=== PATIENT | female | born 1940 | race American Indian/Alaskan Native ===

== ENCOUNTER 2017-10-09 22:14 | Emergency (ER) | payer MEDICARE, BC, OTHER ==
[2017-10-09 23:48] VITALS: RESP 18; O2SAT 98
[2017-10-10 00:32] LABS: SQUAMOUS EPITHIAL 6 /hpf (0-5); URINE BILIRUBIN NEGATIVE (NEGATIVE); URINE BLOOD 3+ (NEGATIVE); URINE CLARITY Hazy (Clear); URINE COLOR Yellow (YELLOW); URINE GLUCOSE (UA) NORMAL (Normal); URINE LEUKOCYTE ESTERASE 3+ Leu/uL (Negative); URINE NITRATE NEGATIVE (NEGATIVE); URINE PROTEIN 2+ mg/dL (NEGATIVE); URINE UROBILINOGEN NORMAL mg/dL (0.2-1.0); WBC CLUMPS MANY /hpf
--- NOTE | 2017-10-10 01:07 | C.PDOC ---
History Of Present Illness Patient is a 77 y/o female who presents to the ED with a complaint of suprapubic discomfort, dysuria, and increased frequency. Patient denies fever, chills, nausea, or vomiting. Admits to tolerating PO. No other physical complaints at this time. Time Seen by Provider: 10/10/17 00:57 Chief Complaint (Nursing): Female Genitourinary History Per: Patient History/Exam Limitations: no limitations Current Symptoms Are (Timing): Still Present Severity: Moderate Pain Scale Rating Of: 4 Quality Of Discomfort: "Pain" Associated Symptoms: Urinary Symptoms (dysuria, increased frequency) Recent travel outside of the [place]: No Past Medical History Reviewed: Historical Data, Nursing Documentation, Vital Signs Vital Signs: Last Vital Signs Temp 99.7 F H 10/09/17 23:41 Pulse 88 10/09/17 23:41 Resp 18 10/09/17 23:41 BP 165/73 H 10/09/17 23:41 Pulse Ox 98 10/10/17 01:07 - Medical History PMH: Diabetes, HTN Surgical History: No Surg Hx - [facility] Procedures COLONOSCOPY (06/01/03) ESOPHAGOGASTRODUODENOSCOPY [EGD] W/CLOSED BIOPSY (06/01/03) Family History: States: No Known Family Hx - Social History Hx Tobacco Use: No Hx Alcohol Use: No Hx Substance Use: No - Immunization History Hx Tetanus Toxoid Vaccination: No Hx Influenza Vaccination: No Hx Pneumococcal Vaccination: No Review Of Systems Constitutional: Negative for: Fever, Chills Gastrointestinal: Positive for: Abdominal Pain (suprapubic discomfort). Negative for: Nausea, Vomiting Genitourinary: Positive for: Dysuria, Frequency Physical Exam - Physical Exam Appears: Non-toxic, No Acute Distress Skin: Warm, Dry Head: Normacephalic Oral Mucosa: Moist Chest: Symmetrical Cardiovascular: Rhythm Regular, No Murmur Respiratory: Normal Breath Sounds, No Rales, No Rhonchi, No Wheezing Gastrointestinal/Abdominal: Soft, Tenderness (suprapubic tenderness), No Guarding, No Rebound Neurological/Psych: Oriented x3, Normal Speech, Normal Cognition ED Course And Treatment O2 Sat by Pulse Oximetry: 98 Progress Note: Pyridium and macrobid administered. Disposition Counseled Patient/Family Regarding: Studies Performed, Diagnosis, Need For Followup, Rx Given - Disposition Referrals: [facility] [Outside] [facility] [Outside] Disposition: HOME/ ROUTINE Disposition Time: 01:04 Condition: FAIR Additional Instructions: Please return if symptoms recur Prescriptions: Nitrofurantoin Macrocrystals [Macrobid] 1 cap PO BID #14 cap Phenazopyridine [Pyridium] 200 mg PO TID #6 tab Instructions: Urinary Tract Infection in Women (DC) Forms: [facility] (Icelandic) - Clinical Impression Clinical Impression: UTI (urinary tract infection) - Scribe Statement The provider has reviewed the documentation as recorded by the Scribe Mariana Jean All medical record entries made by the Scribe were at my direction and personally dictated by me. I have reviewed the chart and agree that the record accurately reflects my personal performance of the history, physical exam, medical decision making, and the department course for this patient. I have also personally directed, reviewed, and agree with the discharge instructions and disposition.
[2017-10-10 01:31] VITALS: BP 174/82; PULSE 84; TEMP 99.3
== END 2017-10-10 01:32 | disposition home or self-care (01) ==
LOC: C.ER 22:14
DX: N39.0 Urinary tract infection, site not specified (principal); E11.9 Type 2 diabetes mellitus without complications; I10 Essential (primary) hypertension

== ENCOUNTER 2017-10-17 16:53 | Emergency (ER) | payer MEDICARE, BC, OTHER ==
[2017-10-17 17:10] VITALS: TEMP 97.9
--- NOTE | 2017-10-17 17:27 | C.PDOC ---
History Of Present Illness 77 years old female presents to ED with complaints of reoccurring pelvic pressure associated with dysuria that began yesterday. s/p treatment for UTI on Macrobid since 10/10. Patient states she has completed her antibiotics and symptoms initially improved, however, the symptoms reoccurred and are present now. She reports the current symptoms are similar to prior. Denies fever, nausea , or vomiting. CO RECUR PELVIC PRESSURE SINCE YEST. S/P TX FOR UTI ON MACROBID SINCE 10/10. PS COMPLETED ABX, INITIALLY IMPROVED BUT NOW W RECUR SX. CURRENT SX SIM TO PRIOR. NO NEW FEVER, NVD. +DYSURIA EXAM NONTOXIC ABD MILD SUPRAPUB TEND SOFT NO R/G REMAINDER NEG Chief Complaint (Nursing): Abdominal Pain History Per: Patient History/Exam Limitations: no limitations Onset/Duration Of Symptoms: Hrs Current Symptoms Are (Timing): Still Present Quality Of Discomfort: Pressure Associated Symptoms: Urinary Symptoms (dysuria ). denies: Fever, Chills, Nausea , Vomiting Alleviating Factors: None Recent travel outside of the [place]: No Abnormal Vaginal Bleeding: No Past Medical History Reviewed: Historical Data, Nursing Documentation, Vital Signs Vital Signs: Last Vital Signs Temp 97.9 F 10/17/17 17:06 Pulse 95 H 10/17/17 17:06 Resp 20 10/17/17 17:06 BP 169/66 H 10/17/17 17:06 Pulse Ox 99 10/17/17 17:42 - Medical History PMH: Diabetes, HTN - [facility] Procedures COLONOSCOPY (06/01/03) ESOPHAGOGASTRODUODENOSCOPY [EGD] W/CLOSED BIOPSY (06/01/03) Family History: States: No Known Family Hx - Social History Hx Tobacco Use: No Hx Alcohol Use: No Hx Substance Use: No - Immunization History Hx Tetanus Toxoid Vaccination: No Hx Influenza Vaccination: No Hx Pneumococcal Vaccination: No Review Of Systems Constitutional: Negative for: Fever, Chills Gastrointestinal: Negative for: Nausea, Vomiting Genitourinary: Positive for: Dysuria, Other (Pelvic pressure). Negative for: Frequency, Hematuria Neurological: Negative for: Weakness, Numbness Physical Exam - Physical Exam Appears: Well, Non-toxic, Other Skin: Normal Color, Warm, Dry Head: Atraumatic, Normacephalic Eye(s): bilateral: Normal Inspection Oral Mucosa: Moist Neck: Supple Chest: Symmetrical, No Tenderness Cardiovascular: Rhythm Regular Respiratory: Normal Breath Sounds, No Decreased Breath Sounds, No Rales, No Rhonchi, No Wheezing Gastrointestinal/Abdominal: Soft, Tenderness (mild suprapubic), No Guarding, No Rebound Neurological/Psych: Oriented x3, Normal Speech, Normal Cognition ED Course And Treatment - Laboratory Results Result Diagrams: 10/17/17 18:09 10/17/17 18:09 O2 Sat by Pulse Oximetry: 99 (RA) Pulse Ox Interpretation: Normal Progress - Re-Evaluation Re-evaluation Note: 10/17/17 18:34 APPEARS COMFORTABLE NAD NONTOXIC. WILL DC - Data Reviewed Data Reviewed: Lab, Old records - Continuity of Care Discussed patient case with:: Patient Medical Decision Making Medical Decision Making: Ordered blood work, urine culture, and urinalysis. Disposition Counseled Patient/Family Regarding: Studies Performed, Diagnosis, Need For Followup, Rx Given - Disposition Referrals: YOUR,PMD [Other] Disposition: HOME/ ROUTINE Disposition Time: 18:36 Condition: IMPROVED Prescriptions: Amoxicillin/Clavulanate [Augmentin 500 MG-125 MG] 1 tab PO BID #14 tab Ibuprofen [Motrin] 400 mg PO QID #30 tab Phenazopyridine HCl [Pyridium] 200 mg PO BID #6 tablet Instructions: Urinary Tract Infections in Adults Forms: [facility] (Rwandan) - Clinical Impression Clinical Impression: UTI (urinary tract infection) - Scribe Statement The provider has reviewed the documentation as recorded by the Jennibmiguel angel Calvert All medical record entries made by the Scribe were at my direction and personally dictated by me. I have reviewed the chart and agree that the record accurately reflects my personal performance of the history, physical exam, medical decision making, and the department course for this patient. I have also personally directed, reviewed, and agree with the discharge instructions and disposition.
[2017-10-17 17:55] LABS: SQUAMOUS EPITHIAL 2 /hpf (0-5); URINE BACTERIA RARE (<OCC); URINE BILIRUBIN NEGATIVE (NEGATIVE); URINE BLOOD 1+ (NEGATIVE); URINE CLARITY Hazy (Clear); URINE COLOR Yellow (YELLOW); URINE GLUCOSE (UA) NORMAL (Normal); URINE LEUKOCYTE ESTERASE 3+ Leu/uL (Negative); URINE NITRATE NEGATIVE (NEGATIVE); URINE PROTEIN 2+ mg/dL (NEGATIVE)
[2017-10-17] MEDS ORDERED: cefTRIAXone IV 1 gm in Dextros 50 ML IV ONE (18:08)
[2017-10-17 18:11] LABS: BASO # 0.1 K/uL (0.0-0.2); BASO % 0.9 % (0.0-2.0); EOS # 0.1 K/uL (0.0-0.7); EOS % 1.4 % (0.0-4.0); HEMOGLOBIN 8.4 g/dL (11.0-16.0); LYMPH # 1.9 K/uL (1.0-4.3); LYMPH % 18.3 % (20.0-40.0); MEAN CELL VOLUME 91.5 fL (81.0-99.0); MEAN CORPUSCULAR HEMOGLOBIN 30.3 pg (27.0-31.0); MEAN CORPUSCULAR HGB CONC 33.1 g/dL (33.0-37.0); MEAN PLATELET VOLUME 8.7 fL (7.2-11.7); MONO # 0.9 K/uL (0.0-0.8); MONO % 8.6 % (0.0-10.0); NEUT # 7.4 K/uL (1.8-7.0); NEUT % 70.8 % (50.0-75.0); NRBC % 0.1 % (0.0-2.0); RBC 2.76 Mil/uL (3.80-5.20); RED CELL DISTRIBUTION WIDTH 14.5 % (11.5-14.5); WHITE BLOOD COUNT 10.4 K/uL (4.8-10.8)
[2017-10-17 18:30] LABS: CALCIUM 8.8 mg/dl (8.6-10.4)
[2017-10-17 18:55] VITALS: BP 130/66; PULSE 73; RESP 16; O2SAT 98
== END 2017-10-17 18:56 | disposition home or self-care (01) ==
LOC: C.ER 16:53
DX: N39.0 Urinary tract infection, site not specified (principal); I10 Essential (primary) hypertension; E11.9 Type 2 diabetes mellitus without complications
CPT/HCPCS: 80048; 81001; 85025; 87086; 87181; 96374; 96375; 99284; J0696; J1885

== ENCOUNTER 2017-11-03 10:14 | Emergency (ER) | payer MEDICARE, BC, OTHER ==
[2017-11-03 11:46] VITALS: O2SAT 97
--- NOTE | 2017-11-03 12:25 | C.PDOC ---
History Of Present Illness 77 year old female with a PMHx of hypertension and diabetes presents to the emergency room for evaluation of high blood pressure. States she woke up today and noticed left arm pain and left hand numbness. Patient then took her blood pressure medication and tried to relax with no improvement, so she came in for further evaluation. Also reports slight headache. On arrival, patient reports feeling better. Denies any chest pain or shortness of breath. Patient already has an appointment with her PMD this afternoon. PMD: Dr. Tyra Dobbins Time Seen by Provider: 11/03/17 11:33 Chief Complaint (Nursing): High Blood Pressure History Per: Patient History/Exam Limitations: no limitations Onset/Duration Of Symptoms: Hrs Current Symptoms Are (Timing): Better Associated Symptoms: Headache Past Medical History Reviewed: Historical Data, Nursing Documentation, Vital Signs Vital Signs: Last Vital Signs Temp 98.0 F 11/03/17 11:45 Pulse 56 L 11/03/17 11:45 Resp 16 11/03/17 11:45 BP 130/64 11/03/17 11:45 Pulse Ox 97 11/03/17 12:38 - Medical History PMH: CVA, Diabetes, HTN Other Surgeries: Ovarian cyst, hysterectomy, ectopic - [facility] Procedures COLONOSCOPY (06/01/03) ESOPHAGOGASTRODUODENOSCOPY [EGD] W/CLOSED BIOPSY (06/01/03) Family History: States: No Known Family Hx - Social History Hx Tobacco Use: No Hx Alcohol Use: No Hx Substance Use: No - Immunization History Hx Tetanus Toxoid Vaccination: No Hx Influenza Vaccination: No Hx Pneumococcal Vaccination: No Review Of Systems Except As Marked, All Systems Reviewed And Found Negative. Cardiovascular: Negative for: Chest Pain Respiratory: Negative for: Shortness of Breath Musculoskeletal: Positive for: Arm Pain (left) Neurological: Positive for: Numbness (to left hand), Headache (slight) Physical Exam - Physical Exam Appears: Non-toxic, No Acute Distress Skin: Normal Color, Warm, Dry Head: Atraumatic, Normacephalic Eye(s): bilateral: Normal Inspection, PERRL, EOMI Nose: Normal Oral Mucosa: Moist Neck: Normal ROM, Supple Chest: Symmetrical Cardiovascular: Rhythm Regular, No Murmur Respiratory: Normal Breath Sounds, No Accessory Muscle Use Gastrointestinal/Abdominal: Soft, No Tenderness, No Distention Extremity: Normal ROM, No Deformity, Swelling (+1 pitting edema to bilateral lower extremities) Neurological/Psych: Oriented x3, Normal Speech, No Other (focal deficits) Gait: Steady ED Course And Treatment O2 Sat by Pulse Oximetry: 97 (RA) Pulse Ox Interpretation: Normal Medical Decision Making Medical Decision Making: Clinical Impression: 77 year old with high blood pressure Blood pressure has improved to 130/64. Patient is medically stable and requires no further intervention in the ED. Instructed to follow up with her PMD this afternoon as scheduled. Disposition Counseled Patient/Family Regarding: Diagnosis, Need For Followup - Disposition Disposition: HOME/ ROUTINE Disposition Time: 12:47 Condition: STABLE Additional Instructions: Take your medication as directed. Follow up with your doctor. Instructions: High Blood Pressure in Adults Forms: [facility] (Uzbek), General Discharge Instructions - POA Present On Arrival: None - Clinical Impression Clinical Impression: Hypertension - Scribe Statement The provider has reviewed the documentation as recorded by the Scribe (Shyanne Pinzon) Provider Attestation: All medical record entries made by the Scribe were at my direction and personally dictated by me. I have reviewed the chart and agree that the record accurately reflects my personal performance of the history, physical exam, medical decision making, and the department course for this patient. I have also personally directed, reviewed, and agree with the discharge instructions and disposition.
[2017-11-03 12:57] VITALS: BP 122/76; PULSE 66; RESP 18; TEMP 97.9
== END 2017-11-03 12:57 | disposition home or self-care (01) ==
LOC: C.ER 10:14
DX: I10 Essential (primary) hypertension (principal)